=== PATIENT | female | born 1930 | race Caucasian/White ===

== ENCOUNTER 2017-10-11 13:15 | Observation (INO) | payer MEDICARE, BC ==
[~2017-10-11] VITALS: Ht 152.4 cm; Wt 47.0 kg
[~2017-10-11 13:15] MED LIST: ASPI81 PO; B12-1CHW OR; CALC-137 PO; CIPR500T4 PO; CLON.5 PO; CORE12.5 PO; FENT75DI TD; FERR324T4 PO; LORTA5 PO; MIRA33504 PO; MOVE FREE ULTRA PO; MULTTAB4 PO; NEXI40CA PO; SYNT25TA PO; [UNRECOGNIZED DRUG - OTHER] PO
[2017-10-11 13:50] VITALS: BP 159/97; PULSE 74; RESP 16; TEMP 98.3; O2SAT 100
[2017-10-11] MEDS ORDERED: REDCAP3 PO (14:27)
[2017-10-11] MEDS ORDERED: HYDR-3516 PO (14:27)
[2017-10-11] MEDS ORDERED: ESOM1CAP16 PO (14:27)
[2017-10-11] MEDS ORDERED: CO Q100C9 (14:27)
[2017-10-11] MEDS ORDERED: ASPI81CH6 CHEW (14:27)
[2017-10-11] MEDS ORDERED: CENTCHW3 PO (14:27)
[2017-10-11] MEDS ORDERED: POLY17PO3 (14:27)
[2017-10-11] MEDS ORDERED: LEVO.075 PO (14:27)
[2017-10-11] MEDS ORDERED: FERR325T18 PO (14:27)
[2017-10-11] MEDS ORDERED: CLON.5 PO (14:27)
[2017-10-11] MEDS ORDERED: CARV12.52 PO (14:27)
[2017-10-11] MEDS ORDERED: KRIL1CAP9 PO (14:27)
[2017-10-11] MEDS ORDERED: FENT75DI T-DERMAL (14:27)
[2017-10-11] MEDS ORDERED: CALC500T37 PO (14:27)
[2017-10-11] MEDS ORDERED: LISI40TA PO (14:27)
[2017-10-11] MEDS ORDERED: FERR28TA (14:27)
[2017-10-11] MEDS ORDERED: SODIUM CHLORIDE 0.9% FLUSH 10 ML FLUSH IVF PRN (14:45)
--- NOTE | 2017-10-11 14:48 | PD ---
HPI Chief Complaint: Chest Pain Time Seen by Provider: 14:28 Travel History International Travel<30 days: No Contact w/Intl Traveler<30days: No Traveled to known affect area: No History of Present Illness HPI 87-year-old female with a history of CABG (2009) presents emergency department complaining of left midsternal chest pressure and tightness for approximately 3 days. This is been associated with nausea without vomiting. No radiation of pain. States that she came in today because she felt her chest "closing in". States her pain was 6/10. Patient denies pain currently but still has a sensation of tightness in her chest. Her family states that she has been less active than normal and laying on the couch for several days which is uncharacteristic for her. 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. States her last cardiology visit was June 2017 and she had an echocardiogram. She does not know the results of her echocardiogram. In addition, states that she had a urinary tract infection approximately 1 month ago and was treated with Cipro and states all symptoms resolved. Patient has spinal stenosis and takes Ventolin fentanyl and hydrocodone daily for her back pain. Says she has had bilateral lower extremity pain for approximately 3 weeks and is due to follow-up with her primary care physician. She denies history of previous MIs, congestive heart failure. PFSH Past Medical History Arthritis: Yes Autoimmune Disease: No Cancer: No Cardiovascular Problems: Yes High Cholesterol: Yes Diminished Hearing: No GERD: Yes Hypertension: Yes Musculoskeletal: Yes (SPINAL STENOSIS) Neurologic: No Thyroid Disease: Yes (hypo) PNEUMOCCOCAL Vaccine (Year): 1 ?: Not Menopausal: Yes Past Surgical History Appendectomy: Yes Coronary Artery Bypass Graft: Yes (may 2010 X3) Tonsillectomy: Yes Other Surgery: Yes (bypass 2009, L breast, cataract, appendectomy, tonsilectomy ) Social History Alcohol Use: No Tobacco Use: No Substance Use: No Allergies-Medications (Allergen,Severity, Reaction): Coded Allergies: Sulfa (Sulfonamide Antibiotics) (Unverified Allergy, Severe, Hives, ) acetaminophen (Unverified Allergy, Severe, Nausea/Vomiting, 10/11/17) codeine (Unverified Allergy, Severe, Nausea/Vomiting, 10/11/17) ibuprofen (Unverified Allergy, Severe, Nausea/Vomiting, 10/11/17) meloxicam (Unverified Allergy, Severe, Nausea/Vomiting, 10/11/17) cayenne pepper fruits (Verified Allergy, Unknown, 10/11/17) garlic (Verified Allergy, Unknown, 10/11/17) guaifenesin (Verified Allergy, Unknown, 10/11/17) nitrofurantoin (Verified Allergy, Unknown, 10/11/17) onion (Verified Allergy, Unknown, 10/11/17) Reported Meds & Prescriptions Reported Meds & Active Scripts Active Reported Fentanyl Patch 72 HR (Fentanyl) 75 Mcg/Hr Patch 75 Mcg T-DERMAL Q72H Remove old patch when new one placed. Ferrous Sulfate 325 Mg (65 Mg Iron) Tablet 325 Mg PO DAILY Klonopin (Clonazepam) 0.5 Mg Tab 0.5 Mg PO BID Megared [place]-3 Krill Oil (Krill Oil) 500 Mg Cap PO DAILY Centrum Silver (Multiple Vitamins W/ Minerals) 400 Mcg-250 Mcg Chw PO DAILY Calcium Ascorbate 500 Mg Tab 600 Mg PO Gnp Red Yeast Rice (Red Yeast Rice Extract) 600 Mg Cap PO DAILY Co Q 10 (Coenzyme Q10 (Ubidecarenone)) 100 Mg-5 Unit Cap Aspirin Low Dose (Aspirin) 81 Mg Chew 81 Mg CHEW DAILY Synthroid (Levothyroxine Sodium) 75 Mcg Tab 75 Mcg PO DAILY Esomeprazole DR 40 Mg Capdr 40 Mg PO DAILY Carvedilol 12.5 Mg Tab 12.5 Mg PO BID Hydrocodone-Acetaminophen 5-325 mg Tab 1 Tab PO Q8HR PRN Miralax (Polyethylene Glycol 3350) 17 Gram Powd.pack 0.5 Review of Systems Except as stated in HPI: all other systems reviewed are Neg Physical Exam Narrative GENERAL: Well-developed, well-nourished in no apparent distress, resting comfortably in bed SKIN: Focused skin assessment warm/dry. HEAD: Atraumatic. Normocephalic. EYES: Pupils equal and round. No scleral icterus. No injection or drainage. EOMI ENT: No nasal bleeding or discharge. Mucous membranes pink and moist. NECK: Trachea midline. No JVD. No lymphadenopathy CARDIOVASCULAR: Regular rate and rhythm. No murmur appreciated. RESPIRATORY: No accessory muscle use. Clear to auscultation. Breath sounds equal bilaterally. GASTROINTESTINAL: Abdomen soft, non-tender, nondistended. Hepatic and splenic margins not palpable. MUSCULOSKELETAL: No obvious deformities. No clubbing. No cyanosis. No edema. Homans sign negative, no erythema, multiple senile purpura present on bilateral lower extremities. NEUROLOGICAL: Awake and alert. No obvious cranial nerve deficits. Motor grossly within normal limits. Normal speech. PSYCHIATRIC: Appropriate mood and affect; insight and judgment normal. Data Data Last Documented VS Vital Signs Date Time Temp Pulse Resp B/P (MAP) Pulse Ox O2 Delivery O2 Flow Rate FiO2 10/11/17 13:50 98.3 74 16 159/97 (117) 100 Orders Orders Electrocardiogram (10/11/17 ) Ckmb (Isoenzyme) Profile (10/11/17 14:41) Complete Blood Count With Diff (10/11/17 14:41) Comprehensive Metabolic Panel (10/11/17 14:41) Magnesium (Mg) (10/11/17 14:41) Prothrombin Time / Inr (Pt) (10/11/17 14:41) Act Partial Throm Time (Ptt) (10/11/17 14:41) Troponin I (10/11/17 14:41) Chest, Single Ap (10/11/17 14:41) Sodium Chloride 0.9% Flush (Ns Flush) (10/11/17 14:45) Urinalysis - C+S If Indicated (10/11/17 14:41) Nitroglycerin 2% Oint (Nitroglycerin 2% (10/11/17 16:30) Activity Bed Rest With Brp (10/11/17 16:21) Vital Signs (Adult) Q4H (10/11/17 16:21) Cardiac Rhythm .As Directed (10/11/17 16:21) Notify Dr: Other .PRN (10/11/17 16:21) Notify Parameters (10/11/17 16:21) Resp Oxygen Nasal Cannula (10/11/17 ) Diet Heart Healthy (10/11/17 Dinner) Ckmb (Isoenzyme) Profile (10/11/17 18:07) Ckmb (Isoenzyme) Profile (10/11/17 21:07) Troponin I (10/11/17 18:07) Troponin I (10/11/17 21:07) Electrocardiogram (10/11/17 18:07) Electrocardiogram (10/11/17 21:07) ^ Obtain (10/11/17 16:21) Sodium Chlor 0.9% 1000 Ml Inj (Ns 1000 M (10/11/17 16:21) Ondansetron Inj (Zofran Inj) (10/11/17 16:30) Nitroglycerin Sl (Nitrostat Sl) (10/11/17 16:30) Home Health Caregiver / Telemetry KRUNAL.Q8H (10/11/17 16:21) Admit Order (Ed Use Only) (10/11/17 16:21) Labs Laboratory Tests Test 10/11/17 14:30 10/11/17 15:07 10/11/17 15:38 Urine Color YELLOW Urine Turbidity HAZY Urine pH 6.0 Urine Specific [place] 1.015 Urine Protein NEG mg/dL Urine Glucose (UA) NEG mg/dL Urine Ketones NEG mg/dL Urine Occult Blood NEG Urine Nitrite NEG Urine Bilirubin NEG Urine Urobilinogen LESS THAN 2.0 MG/DL Urine Leukocyte Esterase TRACE Urine RBC LESS THAN 1 /hpf Urine WBC 1 /hpf Urine Squamous Epithelial Cells 2 /hpf Urine Renal Epithelial Cells <1 /hpf Microscopic Urinalysis Comment CULT NOT INDICATED White Blood Count 9.5 TH/MM3 Red Blood Count 3.86 MIL/MM3 Hemoglobin 10.6 GM/DL Hematocrit 32.5 % Mean Corpuscular Volume 84.2 FL Mean Corpuscular Hemoglobin 27.4 PG Mean Corpuscular Hemoglobin Concent 32.6 % Red Cell Distribution Width 14.0 % Platelet Count 437 TH/MM3 Mean Platelet Volume 7.1 FL Neutrophils (%) (Auto) 74.8 % Lymphocytes (%) (Auto) 13.7 % Monocytes (%) (Auto) 8.4 % Eosinophils (%) (Auto) 2.3 % Basophils (%) (Auto) 0.8 % Neutrophils # (Auto) 7.1 TH/MM3 Lymphocytes # (Auto) 1.3 TH/MM3 Monocytes # (Auto) 0.8 TH/MM3 Eosinophils # (Auto) 0.2 TH/MM3 Basophils # (Auto) 0.1 TH/MM3 CBC Comment DIFF FINAL Differential Comment Blood Urea Nitrogen 21 MG/DL Creatinine 0.97 MG/DL Random Glucose 78 MG/DL Total Protein 7.2 GM/DL Albumin 3.0 GM/DL Calcium Level 9.3 MG/DL Magnesium Level 2.0 MG/DL Alkaline Phosphatase 78 U/L Aspartate Amino Transf (AST/SGOT) 15 U/L Alanine Aminotransferase (ALT/SGPT) 20 U/L Total Bilirubin 0.2 MG/DL Sodium Level 129 MEQ/L Potassium Level 4.8 MEQ/L Chloride Level 95 MEQ/L Carbon Dioxide Level 28.4 MEQ/L Anion Gap 6 MEQ/L Estimat Glomerular Filtration Rate 54 ML/MIN Total Creatine Kinase 28 U/L Troponin I LESS THAN 0.02 NG/ML Prothrombin Time 9.6 SEC Prothromb Time International Ratio 0.9 RATIO Activated Partial Thromboplast Time 20.3 SEC MDM Medical Decision Making Medical Screen Exam Complete: Yes Emergency Medical Condition: Yes Differential Diagnosis NSTEMI, atypical chest pain, angina, unstable angina, GERD, Narrative Course 87-year-old female with a history of CABG (2009) presents emergency department complaining of left midsternal chest pressure and tightness for approximately 3 days. This is been associated with nausea without vomiting. No radiation of pain. States that she came in today because she felt her chest "closing in". States her pain was 6/10. Patient denies pain currently but still has a sensation of tightness in her chest. Her family states that she has been less active than normal and laying on the couch for several days which is uncharacteristic for her. 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. States her last cardiology visit was June 2017 and she had an echocardiogram. She does not know the results of her echocardiogram. In addition, states that she had a urinary tract infection approximately 1 month ago and was treated with Cipro and states all symptoms resolved. Patient has spinal stenosis and takes fentanyl and hydrocodone daily for her back pain. Says she has had bilateral lower extremity pain for approximately 3 weeks and is due to follow-up with her primary care physician. She denies history of previous MIs, congestive heart failure. Vital signs stable. EKG demonstrates sinus rhythm rate 71 without STEMI changes. First-degree heart block NM interval 0.232. Labs and imaging studies ordered. Last Impressions Chest X-Ray 10/11/17 1441 Signed Impressions: Service Date/Time: Wednesday, October 11, 2017 14:46 - CONCLUSION: Cardiomegaly, previous bypass otherwise negative. Jayant Kimble MD FACR CBC stable, mild anemia which is been present. Cardiac enzymes negative. Urinalysis unremarkable. 0.5" nitro administered for 7/10 chest pain. I explained to the patient and family the findings of today's labs and images. They agreed for admission to the chest pain center. Patient should be admitted to the chest pain center for chest pain, rule out ACS. Diagnosis Primary Impression: Atypical chest pain Admitting Information Admitting Physician Requests: Observation Scripts Isosorbide Mononitrate ER (Isosorbide Mononitrate ER) 30 Mg Aida 30 MG PO DAILY for Prevent Chest Pain, #30 TAB 1 Refill Prov: Maria E Mckeon RUBBER ENGRAVER 10/12/17 Condition: Stable [place] Oct 11, 2017 14:48
--- NOTE | 2017-10-11 14:55 | RADRPT ---
EXAM DATE/TIME: 10/11/2017 14:46 [facility] COMPARISON: No previous studies available for comparison. INDICATIONS : Chest pain. MEDICAL HISTORY : Hypertension. SURGICAL HISTORY : CABG. ENCOUNTER: Initial ACUITY: 2 days PAIN SCORE: 6/10 LOCATION: Bilateral chest FINDINGS: Sternal wires previous bypass are noted. Compensated cardiomegaly without failure. No infiltrate or pneumothorax.. The portion of the bony skeleton visualized is unremarkable. CONCLUSION: Cardiomegaly, previous bypass otherwise negative. Jayant Kimble MD FACR on October 11, 2017 at 14:54 Board Certified Radiologist. This report was verified electronically.
[2017-10-11 15:25] LABS: BILIRUBIN, URINE NEG (NEG); BLOOD, URINE NEG (NEG); GLUCOSE,URINE NEG (NEG); KETONE, URINE NEG (NEG); NITRITE,URINE NEG (NEG); RENAL EPITHELIAL CELLS <1 /hpf; SQUAMOUS EPITHELIAL CELL URINE 2 /hpf (0-5); URINE COLOR YELLOW (YELLW/STRAW); URINE LEUKOCYTE ESTERASE TRACE (NEG)
[2017-10-11 15:26] LABS: AUTOMATED NEUTROPHIL # 7.1 TH/MM3 (1.8-7.7); BASOPHIL # 0.1 TH/MM3 (0-0.2); BASOPHIL % 0.8 % (0.0-2.0); EOSINOPHIL # 0.2 TH/MM3 (0-0.4); EOSINOPHIL % 2.3 % (0.0-4.0); HEMATOCRIT 32.5 % (35.0-46.0); HEMOGLOBIN 10.6 GM/DL (11.6-15.3); LYMPH % 13.7 % (9.0-44.0); LYMPHOCYTE # 1.3 TH/MM3 (1.0-4.8); MEAN CELL VOLUME 84.2 FL (80.0-100.0); MEAN CORPUSCULAR HEMOGLOBIN 27.4 PG (27.0-34.0); MEAN CORPUSCULAR HGB CONC 32.6 % (32.0-36.0); MEAN PLATELET VOLUME 7.1 FL (7.0-11.0); MONO % 8.4 % (0.0-8.0); MONOCYTE # 0.8 TH/MM3 (0-0.9); NEUT % 74.8 % (16.0-70.0); PLATELET COUNT 437 TH/MM3 (150-450); RED BLOOD COUNT 3.86 MIL/MM3 (4.00-5.30); WHITE BLOOD COUNT 9.5 TH/MM3 (4.0-11.0)
[2017-10-11 15:38] LABS: ALT (GPT) 20 U/L (10-53); AST (GOT) 15 U/L (15-37); BICARBONATE 28.4 MEQ/L (21.0-32.0); BLOOD UREA NITROGEN 21 MG/DL (7-18); CALCIUM 9.3 MG/DL (8.5-10.1); CHLORIDE 95 MEQ/L (98-107); CREATININE 0.97 MG/DL (0.50-1.00); GLOMERULAR FILTRATION RATE 54 ML/MIN (>89); GLUCOSE,RANDOM 78 MG/DL (74-106); SODIUM (NA) 129 MEQ/L (136-145)
[2017-10-11 15:41] LABS: ALKALINE PHOSPHATASE 78 U/L (45-117); TOTAL BILIRUBIN ADULT 0.2 MG/DL (0.2-1.0); TOTAL PROTEIN 7.2 GM/DL (6.4-8.2); TROPONIN I LESS THAN 0.02 NG/ML (0.02-0.05)
[2017-10-11] MEDS ORDERED: SODIUM CHLOR 0.9% 1000 ML INJ 1,000 ML IV SCH (16:21)
[2017-10-11 16:26] LABS: INTERNATIONAL NORMALIZED RATIO 0.9 RATIO; PROTHROMBIN TIME - PATIENT 9.6 SEC (9.8-11.6)
[2017-10-11] MEDS ORDERED: ONDANSETRON HCL 4 MG/2 ML VIAL IV PUSH PRN (16:30)
[2017-10-11] MEDS ORDERED: NITROGLYCERIN 0.4 MG SL 25 TABS/BTL SL PRN (16:30)
[2017-10-11] MEDS ORDERED: NITROGLYCERIN 2% OINT 1 GM PACKET TOPICAL ONE (16:30)
--- NOTE | 2017-10-11 16:56 | HHI.HP ---
HPI Primary Care Physician No Primary Care Physician Chief Complaint Chest pain History of Present Illness This is an 87-year-old female the presents to ED via private vehicle with family with history of CAD with a 3 vessel bypass 2009 with a complaint of chest discomfort. She states she developed a left-sided chest discomfort yesterday and has been there ever since. Worsened today. Denies shortness breath, nausea, or diaphoresis. Found nothing to worsen or improve the symptoms. States this is not similar to the symptoms she had when eating bypass. At that time she was just nauseous. She had a cardiac evaluation in the hospital in February in [place]. Here and her are here as snowbirds. They have been there since June. She had a cardiac catheterization in February 2017, unknown results but states no interventions were performed. 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 Review of Systems General: Patient denies fevers, chills, and recent travel HEENT: Patient denies headache, sore throat, difficulty swallowing. Cardiovascular: Has the chest discomfort as mentioned above. Denies sensation of heart beating rapidly or irregularly. No syncope. Denies diaphoresis. Respiratory: Denies shortness of breath or inspirational chest discomfort. Denies coughing wheezing or hemoptysis. GI: Patient denies nausea, vomiting, diarrhea, abdominal pain, bloody stools. Musculoskeletal: Patient denies joint pain or edema. Denies calf pain or edema. Neurovascular: Patient denies numbness, tingling, weakness in extremities. Denies headache. Endocrine: Denies polyuria and polydipsia. Hematologic: Denies easy bruising. Skin: Denies rash or itching. Past Family Social History Allergies: Coded Allergies: Sulfa (Sulfonamide Antibiotics) (Unverified Allergy, Severe, Hives, ) acetaminophen (Unverified Allergy, Severe, Nausea/Vomiting, 10/11/17) codeine (Unverified Allergy, Severe, Nausea/Vomiting, 10/11/17) ibuprofen (Unverified Allergy, Severe, Nausea/Vomiting, 10/11/17) meloxicam (Unverified Allergy, Severe, Nausea/Vomiting, 10/11/17) cayenne pepper fruits (Verified Allergy, Unknown, 10/11/17) garlic (Verified Allergy, Unknown, 10/11/17) guaifenesin (Verified Allergy, Unknown, 10/11/17) nitrofurantoin (Verified Allergy, Unknown, 10/11/17) onion (Verified Allergy, Unknown, 10/11/17) Past Medical History CAD with three-vessel bypass 2009. Hypertension, hyperlipidemia, chronic back pain, anemia, hypothyroidism, and GERD. Past Surgical History Three-vessel bypass 2009. Several heart catheterizations. Cataracts. Appendectomy and tonsillectomy. Reported Medications Reported Meds & Active Scripts Active Reported Fentanyl Patch 72 HR (Fentanyl) 75 Mcg/Hr Patch 75 Mcg T-DERMAL Q72H Remove old patch when new one placed. Ferrous Sulfate 325 Mg (65 Mg Iron) Tablet 325 Mg PO BIDPC Klonopin (Clonazepam) 0.5 Mg Tab 0.5 Mg PO BID Lisinopril 40 Mg Tab 100 Mg PO HS Megared [place]-3 Krill Oil (Krill Oil) 500 Mg Cap PO DAILY Centrum Silver (Multiple Vitamins W/ Minerals) 400 Mcg-250 Mcg Chw PO DAILY Calcium Ascorbate 500 Mg Tab 600 Mg PO Gnp Red Yeast Rice (Red Yeast Rice Extract) 600 Mg Cap PO DAILY Co Q 10 (Coenzyme Q10 (Ubidecarenone)) 100 Mg-5 Unit Cap Iron (Ferrous Gluconate) 256 Mg (28 Mg Iron) Tab 325 Mg BID Aspirin Low Dose (Aspirin) 81 Mg Chew 81 Mg CHEW DAILY Synthroid (Levothyroxine Sodium) 75 Mcg Tab 75 Mcg PO DAILY Esomeprazole DR 40 Mg Capdr 40 Mg PO DAILY Carvedilol 12.5 Mg Tab 12.5 Mg PO BID Hydrocodone-Acetaminophen 5-325 mg Tab 1 Tab PO Q8HR PRN Miralax (Polyethylene Glycol 3350) 17 Gram Powd.pack 0.5 Active Ordered Medications Current Medications Medications (Trade) Dose Ordered Sig/Lisa Route Start Time Stop Time Status Last Admin (NS Flush) 2 ml UNSCH PRN IVF 10/11/17 14:45 Sodium Chloride 1,000 ml @ 100 mls/hr Q10H IV 10/11/17 16:21 (Zofran Inj) 4 mg Q6H PRN IV PUSH 10/11/17 16:30 (Nitrostat Sl) 0.4 mg Q5M PRN SL 10/11/17 16:30 Family History Family history of CAD. Social History Non-smoker. Denies alcohol or illicit drugs. 69 years Physical Exam Vital Signs Vital Signs Date Time Temp Pulse Resp B/P (MAP) Pulse Ox O2 Delivery O2 Flow Rate FiO2 10/11/17 13:50 98.3 74 16 159/97 (117) 100 Physical Exam GENERAL: This is a well-nourished, well-developed patient, in no apparent distress. Patient speaks in clear complete sentences. Patient is pleasant. HEENT: Head is atraumatic and normocephalic. Neck is supple without lymphadenopathy and trachea is midline. No JVD or carotid bruits. CARDIOVASCULAR: Grade 2 systolic murmur right sternal border with radiation to the neck. Also bilateral carotid bruit. Regular rate and rhythm without gallops, or rubs. RESPIRATORY: Clear to auscultation. Breath sounds equal bilaterally. No wheezes , rales, or rhonchi. Chest wall is tender but not similar to the discomfort she was having. No use of accessory muscles. GASTROINTESTINAL: Abdomen is nontender, nondistended. Abdomen soft. No obvious pulsatile mass or bruit. No CVA tenderness. Strong femoral pulses bilaterally. Normal bowel sounds in all quadrants. MUSCULOSKELETAL: Patient is moving upper and lower extremities freely. No calf tenderness or edema, no Homans sign. Strong pulses in upper and lower extremities. NEUROLOGICAL: Patient is alert and oriented. Cranial nerves 2-12 are grossly intact. No focal deficits and speech is clear. SKIN: No rash and turgor is normal. Laboratory Laboratory Tests Test 10/11/17 14:30 10/11/17 15:07 10/11/17 15:38 Urine Color YELLOW Urine Turbidity HAZY Urine pH 6.0 Urine Specific [place] 1.015 Urine Protein NEG Urine Glucose (UA) NEG Urine Ketones NEG Urine Occult Blood NEG Urine Nitrite NEG Urine Bilirubin NEG Urine Urobilinogen LESS THAN 2.0 Urine Leukocyte Esterase TRACE Urine RBC LESS THAN 1 Urine WBC 1 Urine Squamous Epithelial Cells 2 Urine Renal Epithelial Cells <1 Microscopic Urinalysis Comment CULT NOT INDICATED White Blood Count 9.5 Red Blood Count 3.86 Hemoglobin 10.6 Hematocrit 32.5 Mean Corpuscular Volume 84.2 Mean Corpuscular Hemoglobin 27.4 Mean Corpuscular Hemoglobin Concent 32.6 Red Cell Distribution Width 14.0 Platelet Count 437 Mean Platelet Volume 7.1 Neutrophils (%) (Auto) 74.8 Lymphocytes (%) (Auto) 13.7 Monocytes (%) (Auto) 8.4 Eosinophils (%) (Auto) 2.3 Basophils (%) (Auto) 0.8 Neutrophils # (Auto) 7.1 Lymphocytes # (Auto) 1.3 Monocytes # (Auto) 0.8 Eosinophils # (Auto) 0.2 Basophils # (Auto) 0.1 CBC Comment DIFF FINAL Differential Comment Blood Urea Nitrogen 21 Creatinine 0.97 Random Glucose 78 Total Protein 7.2 Albumin 3.0 Calcium Level 9.3 Magnesium Level 2.0 Alkaline Phosphatase 78 Aspartate Amino Transf (AST/SGOT) 15 Alanine Aminotransferase (ALT/SGPT) 20 Total Bilirubin 0.2 Sodium Level 129 Potassium Level 4.8 Chloride Level 95 Carbon Dioxide Level 28.4 Anion Gap 6 Estimat Glomerular Filtration Rate 54 Total Creatine Kinase 28 Troponin I LESS THAN 0.02 Prothrombin Time 9.6 Prothromb Time International Ratio 0.9 Activated Partial Thromboplast Time 20.3 Result Diagram: 10/11/17 1507 10/11/17 1507 Imaging Last 48 hours Impressions Chest X-Ray 10/11/17 1441 Signed Impressions: Service Date/Time: Wednesday, October 11, 2017 14:46 - CONCLUSION: Cardiomegaly, previous bypass otherwise negative. Jayant Kimble MD FACR Course Initial EKG is sinus rhythm without significant ST segment depressions or elevations. Caprini VTE Risk Assessment Caprini VTE Risk Assessment: Mod/High Risk (score >= 2) Caprini Risk Assessment Model Point Value = 1 Point Value = 2 Point Value = 3 Point Value = 5 Age 41-60 Minor surgery BMI > 25 kg/m2 Swollen legs Varicose veins or History of unexplained or recurrent spontaneous Oral contraceptives or hormone replacement Sepsis (< 1 month) Serious lung disease, including pneumonia (< 1 month) Abnormal pulmonary function Acute myocardial infarction Congestive heart failure (< 1 month) History of inflammatory bowel disease Medical patient at bed rest Age 61-74 Arthroscopic surgery Major open surgery (> 45 min) Laparoscopic surgery (> 45 min) Malignancy Confined to bed (> 72 hours) Immobilizing plaster cast Central venous access Age >= 75 History of VTE Family history of VTE Factor V Leiden Prothrombin [id number] Lupus anticoagulant Anticardiolipin antibodies Elevated serum homocysteine Heparin-induced thrombocytopenia Other congenital or acquired thrombophilia Stroke (< 1 month) Elective arthroplasty Hip, pelvis, or leg fracture Acute spinal cord injury (< 1 month) Prophylaxis Regimen Total Risk Factor Score Risk Level Prophylaxis Regimen 0-1 Low Early ambulation 2 Moderate Order ONE of the following: *Sequential Compression Device (SCD) *Heparin 5000 units SQ BID 3-4 Higher Order ONE of the following medications: *Heparin 5000 units SQ TID *Enoxaparin/Lovenox 40 mg SQ daily (WT < 150 kg, CrCl > 30 mL/min) *Enoxaparin/Lovenox 30 mg SQ daily (WT < 150 kg, CrCl > 10-29 mL/min) *Enoxaparin/Lovenox 30 mg SQ BID (WT < 150 kg, CrCl > 30 mL/min) AND/OR *Sequential Compression Device (SCD) 5 or more Highest Order ONE of the following medications: *Heparin 5000 units SQ TID (Preferred with Epidurals) *Enoxaparin/Lovenox 40 mg SQ daily (WT < 150 kg, CrCl > 30 mL/min) *Enoxaparin/Lovenox 30 mg SQ daily (WT < 150 kg, CrCl > 10-29 mL/min) *Enoxaparin/Lovenox 30 mg SQ BID (WT < 150 kg, CrCl > 30 mL/min) AND *Sequential Compression Device (SCD) Assessment and Plan Assessment and Plan * Chest pain: Patient will continue to have serial cardiac enzymes and EKGs were ruling out purposes. Patient will be seen by Dr. Cano of cardiology in the chest pain center in the morning. Likely to have a chemical stress test in the morning and to be discharged home if stress test is nonischemic. Follow-up with her supervisor metal fabricating and PCP. Return to ED for interval issues. * Hypertension: Continue medications. * Hyperlipidemia: Continue medications. * GERD: Continue medications. * Hypothyroidism: Continue current medications Patient is stable at this time. She is agreeable to this plan. Nnamdi Finn Oct 11, 2017 16:56
[2017-10-11 17:00] VITALS: PULSE 76
[2017-10-11 17:06] VITALS: BP 169/73; PULSE 76; RESP 20; O2SAT 97
[2017-10-11] MEDS ORDERED: ACETAMINOPHEN/HYDROcodone 325 MG/5 MG TAB PO PRN (17:15)
[2017-10-11 17:16] VITALS: BP 179/76; PULSE 75; RESP 20; TEMP 99.2; O2SAT 98
[2017-10-11] MEDS ORDERED: RESP: ALBUTEROL 2.5 MG/IPRATROPIUM 0.5 MG NEB (PRN) INH (17:30)
[2017-10-11] MEDS ORDERED: cloNIDine HCL 0.1 MG TAB PO PRN (17:30)
[2017-10-11 19:16] VITALS: BP 167/72; PULSE 69; RESP 16; TEMP 99.1; O2SAT 97
[2017-10-11 20:59] LABS: TROPONIN I LESS THAN 0.02 NG/ML (0.02-0.05)
[2017-10-11] MEDS: clonazePAM 0.5 MG TAB PO SCH (21:00)
[2017-10-11] MEDS ORDERED: LISINOPRIL 20 MG TAB PO SCH (21:00)
[2017-10-11] MEDS: CARVEDILOL 12.5 MG TAB PO SCH (21:50)
[2017-10-11 22:27] LABS: TROPONIN I LESS THAN 0.02 NG/ML (0.02-0.05)
[2017-10-12 01:49] VITALS: BP 133/73; PULSE 65; RESP 16; TEMP 98; O2SAT 98
[2017-10-12 02:42] VITALS: PULSE 65
[2017-10-12] MEDS ORDERED: LEVOTHYROXINE SODIUM 75 MCG TAB PO SCH (06:00)
[2017-10-12 08:00] VITALS: PULSE 70
[2017-10-12 08:38] VITALS: BP 179/76; PULSE 71; RESP 20; TEMP 98.5; O2SAT 97
--- NOTE | 2017-10-12 08:43 | PD.CARD.PN ---
Subjective Subjective Remarks No complaints overnight, no further chest pain Objective Medications Current Medications Medications (Trade) Dose Ordered Sig/Lisa Route Start Time Stop Time Status Last Admin (NS Flush) 2 ml UNSCH PRN IVF 10/11/17 14:45 Sodium Chloride 1,000 ml @ 100 mls/hr Q10H IV 10/11/17 16:21 10/11/17 16:52 (Zofran Inj) 4 mg Q6H PRN IV PUSH 10/11/17 16:30 (Nitrostat Sl) 0.4 mg Q5M PRN SL 10/11/17 16:30 (Coreg) 12.5 mg BID PO 10/11/17 21:00 10/11/17 21:50 (KlonoPIN) 0.5 mg BID PO 10/11/17 21:00 ([place] 5-325 Mg) 1 tab Q8HR PRN PO 10/11/17 17:15 10/11/17 21:59 (Synthroid) 75 mcg DAILY@0600 PO 10/12/17 06:00 10/12/17 06:07 (Prinivil) 40 mg HS PO 10/11/17 21:00 10/11/17 21:49 (Duoneb Neb) 1 ampule Q4HR NEB PRN INH 10/11/17 17:30 (Catapres) 0.1 mg Q4H PRN PO 10/11/17 17:30 Vital Signs / I&O Vital Signs Date Time Temp Pulse Resp B/P (MAP) Pulse Ox O2 Delivery O2 Flow Rate FiO2 10/12/17 02:42 65 10/12/17 01:49 98.0 65 16 133/73 (93) 98 10/11/17 19:16 99.1 69 16 167/72 (103) 97 10/11/17 17:16 99.2 75 20 179/76 (110) 98 10/11/17 17:06 76 20 169/73 (105) 97 Room Air 10/11/17 17:00 76 10/11/17 13:50 98.3 74 16 159/97 (117) 100 I/O 10/11/17 10/11/17 10/11/17 10/12/17 10/12/17 10/12/17 07:00 15:00 23:00 07:00 15:00 23:00 Intake Total 200 ml Balance 200 ml Intake Oral 200 ml Physical Exam GENERAL: Alert WN, WD, NAD, pleasant, elderly, female HEAD: NC, AT CV: RRR, without murmur, rub, gallop, no JVD, S1-S2 no S3-S4. RESP: Clear lungs throughout bilateral, no crackles, wheeze, rhonchi, symmetrical chest rise, nonlabored, able to speak in full sentences MS: Normal tone 4 extremities, nontender, no obvious deformities, full range of motion NEURO: CN II through CN XII grossly intact, motor strength 5/5 PSYCH: A+O 3, pleasant affect, appropriate speech, mood, insight and judgment SKIN: Normal turgor, normal texture Laboratory Laboratory Tests Test 10/11/17 14:30 10/11/17 15:07 10/11/17 15:38 10/11/17 18:15 Urine Color YELLOW Urine Turbidity HAZY Urine pH 6.0 Urine Specific [place] 1.015 Urine Protein NEG mg/dL Urine Glucose (UA) NEG mg/dL Urine Ketones NEG mg/dL Urine Occult Blood NEG Urine Nitrite NEG Urine Bilirubin NEG Urine Urobilinogen LESS THAN 2.0 MG/DL Urine Leukocyte Esterase TRACE Urine RBC LESS THAN 1 /hpf Urine WBC 1 /hpf Urine Squamous Epithelial Cells 2 /hpf Urine Renal Epithelial Cells <1 /hpf Microscopic Urinalysis Comment CULT NOT INDICATED White Blood Count 9.5 TH/MM3 Red Blood Count 3.86 MIL/MM3 Hemoglobin 10.6 GM/DL Hematocrit 32.5 % Mean Corpuscular Volume 84.2 FL Mean Corpuscular Hemoglobin 27.4 PG Mean Corpuscular Hemoglobin Concent 32.6 % Red Cell Distribution Width 14.0 % Platelet Count 437 TH/MM3 Mean Platelet Volume 7.1 FL Neutrophils (%) (Auto) 74.8 % Lymphocytes (%) (Auto) 13.7 % Monocytes (%) (Auto) 8.4 % Eosinophils (%) (Auto) 2.3 % Basophils (%) (Auto) 0.8 % Neutrophils # (Auto) 7.1 TH/MM3 Lymphocytes # (Auto) 1.3 TH/MM3 Monocytes # (Auto) 0.8 TH/MM3 Eosinophils # (Auto) 0.2 TH/MM3 Basophils # (Auto) 0.1 TH/MM3 CBC Comment DIFF FINAL Differential Comment Blood Urea Nitrogen 21 MG/DL Creatinine 0.97 MG/DL Random Glucose 78 MG/DL Total Protein 7.2 GM/DL Albumin 3.0 GM/DL Calcium Level 9.3 MG/DL Magnesium Level 2.0 MG/DL Alkaline Phosphatase 78 U/L Aspartate Amino Transf (AST/SGOT) 15 U/L Alanine Aminotransferase (ALT/SGPT) 20 U/L Total Bilirubin 0.2 MG/DL Sodium Level 129 MEQ/L Potassium Level 4.8 MEQ/L Chloride Level 95 MEQ/L Carbon Dioxide Level 28.4 MEQ/L Anion Gap 6 MEQ/L Estimat Glomerular Filtration Rate 54 ML/MIN Total Creatine Kinase 28 U/L 21 U/L Troponin I LESS THAN 0.02 NG/ML LESS THAN 0.02 NG/ML Prothrombin Time 9.6 SEC Prothromb Time International Ratio 0.9 RATIO Activated Partial Thromboplast Time 20.3 SEC Test 10/11/17 21:43 Total Creatine Kinase 11 U/L Troponin I LESS THAN 0.02 NG/ML Imaging Last 24 hours Impressions Chest X-Ray 10/11/17 1441 Signed Impressions: Service Date/Time: Wednesday, October 11, 2017 14:46 - CONCLUSION: Cardiomegaly, previous bypass otherwise negative. Jayant Kimble MD FACR Assessment and Plan Assessment and Plan Chest pain-admitted chest pain center. Ruled out with 3 sets of EKGs, cardiac enzymes, and monitored overnight. Seen and evaluated by Dr.Beth Cano. Discussed recommended Lexiscan this morning, if unremarkable plans to discharge home. Add Imdur 30mg daily to home medications upon discharge. Patient and family are agreeable to plan of care. Maria E Mckeon Oct 12, 2017 08:43
[2017-10-12] MEDS: clonazePAM 0.5 MG TAB PO SCH (09:00)
[2017-10-12] MEDS ORDERED: ISOS30TA3 PO (11:08)
[2017-10-12] MEDS ORDERED: REGADENOSON INJ 0.4 MG/5 ML SYR ONE (11:35)
[2017-10-12] MEDS ORDERED: AMINOPHYLLINE INJ 250 MG/10 ML VIAL ONE (12:10)
--- NOTE | 2017-10-12 13:37 | RADRPT ---
EXAM DATE/TIME: 10/12/2017 11:37 [facility] COMPARISON: No previous studies available for comparison. INDICATIONS : Chest pain. Angina. DOSE: 25.3 mCi Tc99m Myoview at stress. 8.5 mCi Tc99m Myoview at rest. 0.4 mg Lexiscan STRESS SYMPTOMS: Shortness of breath, chest pressure. MEDICATIONS: 1.) 100 mg Aminophylline IV EJECTION FRACTION: 70% MEDICAL HISTORY : Hypertension. Hypercholesterolemia. Cardiovascular disease SURGICAL HISTORY : CABG Tonsillectomy. Appendectomy. ENCOUNTER: Initial ACUITY: 1 day PAIN SCALE: 1/10 LOCATION: Substernal chest TECHNIQUE: The patient underwent pharmacologic stress with infusion of prescribed dose. Continuous ECG tracing was monitored during stress. Gated SPECT imaging was performed after stress and conventional SPECT i maging was performed at rest. The examination was performed on a SPECT/CT scanner, both attenuation and non-corrected datasets were reviewed. FINDINGS: DISTRIBUTION: The maximum perfused segment at stress is in the <mid anterolateral> wall. PERFUSION STUDY: The pattern of perfusion at stress is within normal limits. GATED STUDY: There is intact wall motion and thickening without hypokinetic or dyskinetic segments. CONCLUSION: Normal examination. RISK CATEGORY: Low (<1% Annual Mortality Rate) Timoteo Rojas MD on October 12, 2017 at 13:35 Board Certified Radiologist. This report was verified electronically.
--- NOTE | 2017-10-12 13:57 | HHI.DCPOC ---
Discharge Care Plan Diagnosis: (1) Hx of coronary artery disease (2) Atypical chest pain Goals to Promote Your Health * To prevent worsening of your condition and complications * To maintain your health at the optimal level Directions to Meet Your Goals Take your medications as prescribed Follow your dietary instruction Follow activity as directed Keep your appointments as scheduled Take your immunizations and boosters as scheduled If your symptoms worsen call your PCP, if no PCP go to Urgent Care Center or Emergency Room Smoking is Dangerous to Your Health. Avoid second hand smoke Call the 24-hour hour crisis hotline for domestic abuse at Maria E Mckeon Oct 12, 2017 13:57
--- NOTE | 2017-10-12 14:47 | HHI.DS ---
Discharge Summary Admission Date Oct 11, 2017 at 16:25 Discharge Date: Oct 12, 2017 Admitting Diagnosis chest pain r/o ACS Brief History 87 year old female with history of CABG x3 (2009) presented to ER for further evaluation of chest tightness and pressure. Endorses cardiac catheterization February 2017 reported to be normal and she did not require any interventions. States reason why catheterization completed February was because her GI specialist would not treat her until cardiac was ruled out. Reports her demographic analyst expressed to her heart in good health but had to prove this via catheterization. Admitted to chest pain center, ruled out with 3 sets of EKGs, cardiac enzymes, and monitored on telemetry. Seen and evaluated by Dr. Chelsey Cano. Agreed to completing chemical stress testing prior to discharge. CBC/BMP: 10/11/17 1507 10/11/17 1507 Significant Findings Laboratory Tests Test 10/11/17 14:30 10/11/17 15:07 10/11/17 15:38 10/11/17 18:15 Urine Turbidity HAZY (CLEAR) Urine Leukocyte Esterase TRACE (NEG) Red Blood Count 3.86 MIL/MM3 (4.00-5.30) Hemoglobin 10.6 GM/DL (11.6-15.3) Hematocrit 32.5 % (35.0-46.0) Neutrophils (%) (Auto) 74.8 % (16.0-70.0) Monocytes (%) (Auto) 8.4 % (0.0-8.0) Blood Urea Nitrogen 21 MG/DL (7-18) Albumin 3.0 GM/DL (3.4-5.0) Sodium Level 129 MEQ/L (136-145) Chloride Level 95 MEQ/L (98-107) Estimat Glomerular Filtration Rate 54 ML/MIN (>89) Troponin I LESS THAN 0.02 NG/ML LESS THAN 0.02 NG/ML Prothrombin Time 9.6 SEC (9.8-11.6) Activated Partial Thromboplast Time 20.3 SEC (24.3-30.1) Total Creatine Kinase 21 U/L (26-192) Test 10/11/17 21:43 Total Creatine Kinase 11 U/L (26-192) Troponin I LESS THAN 0.02 NG/ML Imaging Last 48 hours Impressions Myocardial Perfusion Scan Nuc Med 10/12/17 0000 Signed Impressions: Service Date/Time: October 11:37 - CONCLUSION: Normal examination. RISK CATEGORY: Low (<1%% Annual Mortality Rate) Timoteo Rojas MD Chest X-Ray 10/11/17 1441 Signed Impressions: Service Date/Time: Wednesday, October 11, 2017 14:46 - CONCLUSION: Cardiomegaly, previous bypass otherwise negative. Jayant Kimble MD FACR PE at Discharge GENERAL: Alert WN, WD, NAD, pleasant, elderly female HEAD: NC, AT CV: RRR, without murmur, rub, gallop, no JVD, S1-S2 no S3-S4. RESP: Clear lungs throughout bilateral, no crackles, wheeze, rhonchi, symmetrical chest rise, nonlabored, able to speak in full sentences MS: Normal tone 4 extremities no obvious deformities, full range of motion NEURO: CN II through CN XII grossly intact, motor strength 5/5 PSYCH: A+O 3, pleasant affect, appropriate speech, appropriate mood and affect , insight and judgment SKIN: Normal turgor, normal texture Pt Condition on Discharge: Good Discharge Disposition: Discharge Home Discharge Instructions DIET: Follow Instructions for: Heart Healthy Diet Activities you can perform: Regular-No Restrictions Additional Information Strongly encouraged to establish with a local PCP and demographic analyst as she lives her forepart [place]. Instructed to call her PCP and demographic analyst to notify them of admission and addition of Imdur to medication regimen. Both patient, patient's , and daughter verbalized understanding. Maria E Mckeon Oct 12, 2017 14:47
[2017-10-12] MEDS: CARVEDILOL 12.5 MG TAB PO SCH (15:29)
--- NOTE | 2017-10-12 17:59 | EKG ---
Date Performed: 10/11/2017 Time Performed: 20:58:47 PTAGE: 87 years EKG: Sinus rhythm WITH SINUS ARRHYTHMIA WITH FIRST DEGREE AV BLOCK LEFT POSTERIOR FASCICULAR BLOCK ANTEROLATERAL MYOCA RDIAL INFARCTION ABNORMAL ECG Since PREVIOUS TRACING , no significant change noted PREVIOUS TRACIN10/11/2017 18.13 DOCTOR: Chelsey Cano Interpretating Date/Time 10/12/2017 17:57:55
--- NOTE | 2017-10-12 18:03 | TR ---
Date Performed: 10/12/2017 Time Performed: 11:53:11 DOCTOR: Chelsey Cano DRUG LIST: CLINICAL HISTORY: ANGINA REASON FOR TEST: Angina REASON FOR ENDING: OBSERVATION: CONCLUSION: Lexiscan stress test was performed under standard four minute protocol. Radionuclid e was injected one minute prior to ending the test. No electrocardiographic abormalities were present to suggest ischemia. Nuclear imaging and interpretation are pending. COMMENTS:
--- NOTE | 2017-10-12 18:08 | EKG ---
Date Performed: 10/11/2017 Time Performed: 14:07:52 PTAGE: 87 years EKG: Sinus rhythm WITH FIRST DEGREE AV BLOCK POSSIBLE ANTERIOR MYOCARDIAL INFARCTION ABNORMAL ECG Since PREVIOUS TRACING , no significant change noted PREVIOUS TRACIN11/04/2011 12.09 DOCTOR: Chelsey Cano Interpretating Date/Time 10/12/2017 18:08:04
--- NOTE | 2017-10-12 18:09 | EKG ---
Date Performed: 10/11/2017 Time Performed: 18:13:45 PTAGE: 87 years EKG: Sinus rhythm WITH FIRST DEGREE AV BLOCK ANTEROSEPTAL MYOCARDIAL INFARCTION ABNORMAL ECG Since PREVIOUS TRACING , no significant change noted PREVIOUS TRACIN10/11/2017 14.07 DOCTOR: Chelsey Cano Interpretating Date/Time 10/12/2017 18:08:30
== END 2017-10-12 17:12 | disposition home or self-care (01) ==
LOC: NEPC 13:15 → NEDA 16:25 → NEPFCDU 17:14
PROVIDERS: ADMIT Internal Medicine Cardiovascular Disease; ATTEND Internal Medicine Cardiovascular Disease
DX: R07.89 Other chest pain (principal); D64.9 Anemia, unspecified; R06.02 Shortness of breath; M79.604 Pain in right leg; M79.605 Pain in left leg; R11.0 Nausea; I25.10 Atherosclerotic heart disease of native coronary artery without angina pectoris; I20.9 Angina pectoris, unspecified; I11.9 Hypertensive heart disease without heart failure; I44.0 Atrioventricular block, first degree; I44.5 Left posterior fascicular block; R94.31 Abnormal electrocardiogram [ECG] [EKG]; I49.9 Cardiac arrhythmia, unspecified; E78.00 Pure hypercholesterolemia, unspecified; K21.9 Gastro-esophageal reflux disease without esophagitis; E03.9 Hypothyroidism, unspecified; M54.9 Dorsalgia, unspecified; G89.29 Other chronic pain; M48.00 Spinal stenosis, site unspecified; M19.90 Unspecified osteoarthritis, unspecified site; Z95.1 Presence of aortocoronary bypass graft; Z79.899 Other long term (current) drug therapy; Z79.82 Long term (current) use of aspirin
CPT/HCPCS: 71045; 78452; 80053; 81001; 82550; 83735; 84484; 85025; 85610; 85730; 93005; 93017; 99285; A9502; G0378; J0280; J2785; J7030